=== PATIENT | female | born 1990 | race Two or more races ===

== ENCOUNTER 2023-09-15 14:26 | Outpatient (CLI) | payer OTHER | END 2023-09-15 14:27 | disposition home or self-care (01) | LOC: PRENATAL 14:26 | PROVIDERS: ATTEND Obstetrics & Gynecology Maternal & Fetal Medicine | DX: O36.80X0 Pregnancy with inconclusive fetal viability, not applicable or unspecified (principal); Z36.82 Encounter for antenatal screening for nuchal translucency; Z3A.12 12 weeks gestation of pregnancy ==

== ENCOUNTER 2023-09-23 15:44 | Emergency (ER) | payer OTHER ==
[~2023-09-23] VITALS: Ht 160 cm; Wt 61.2 kg
[2023-09-23] MEDS ORDERED: PRENATAL + DHA1 EAC1 PO (16:13)
[2023-09-23] MEDS ORDERED: 0.9 % SODIUM CHLORIDE 1,000 ML IV STA (16:24)
[2023-09-23 16:47] LABS: HEMATOCRIT 39.6 % (36.0-45.00); HEMOGLOBIN 13.7 g/dL (12.0-15.00); MEAN CELL VOLUME 92.4 fL (80.00-100.00); MEAN CORPUSCULAR HEMOGLOBIN 31.9 pg (27.00-32.0); MEAN CORPUSCULAR HGB CONC 34.5 g/dl (32.0-36.0); PLATELET COUNT 250 K/uL (150-450); RED BLOOD COUNT 4.28 M/uL (4.00-6.00); RED CELL DISTRIBUTION WIDTH 12.9 % (11.5-14.5)
== END 2023-09-23 18:27 | disposition home or self-care (01) ==
LOC: ER 15:44
PROVIDERS: Emergency Medicine
DX: O20.9 Hemorrhage in early pregnancy, unspecified (principal); Z3A.13 13 weeks gestation of pregnancy

== ENCOUNTER 2023-11-11 10:30 | Outpatient (CLI) | payer OTHER ==
[~2023-11-11 10:30] MED LIST: PRENATAL + DHA1 EAC1 PO
== END 2023-11-11 10:31 | disposition home or self-care (01) ==
LOC: PRENATAL 10:30
PROVIDERS: ATTEND Obstetrics & Gynecology Maternal & Fetal Medicine
DX: O35.9XX0 Maternal care for (suspected) fetal abnormality and damage, unspecified, not applicable or unspecified (principal); O35.3XX0 Maternal care for (suspected) damage to fetus from viral disease in mother, not applicable or unspecified; O44.00 Complete placenta previa NOS or without hemorrhage, unspecified trimester; Z3A.20 20 weeks gestation of pregnancy

== ENCOUNTER 2024-02-02 09:53 | Outpatient (CLI) | payer OTHER | END 2024-02-02 09:54 | disposition home or self-care (01) | LOC: PRENATAL 09:53 | PROVIDERS: ATTEND Obstetrics & Gynecology Maternal & Fetal Medicine | DX: O26.849 Uterine size-date discrepancy, unspecified trimester (principal); O36.8199 Decreased fetal movements, unspecified trimester, other fetus; Z3A.32 32 weeks gestation of pregnancy ==

== ENCOUNTER 2024-03-19 07:49 | Inpatient (IN) | payer OTHER ==
[~2024-03-19] VITALS: Ht 167.6 cm; Wt 73.9 kg
[2024-03-19] MEDS ORDERED: RINGERS SOLUTION,LACTATED 1,000 ML IV SCH (08:00)
[2024-03-19] MEDS ORDERED: PEPCID20 MG PO (08:00)
[2024-03-19] MEDS ORDERED: AMPICILLIN SODIUM 2,000 MG VIAL IV NR (08:00)
[2024-03-19 08:43] LABS: PH,URINE 7.5 (5.0-8.0); URINE APPEARANCE Turbid; URINE BILIRRUBIN Small (NEGATIVE); URINE BLOOD Large; URINE COLOR Orange; URINE GLUCOSE Negative (NEGATIVE); URINE LEUKOCYTE Large; URINE NITRATE Negative
[2024-03-19 08:44] LABS: URINE BACTERIA 7578.8 uL (0.0-1933); URINE RBC 1147.7 uL (0.0-20.8); URINE WBC 2717.2 uL (0.0-23.2)
[2024-03-19 08:54] LABS: URINE CAST 0.91 uL (0.0-1.40); URINE EPITHELIAL CELLS > 201.7 uL (0.0-38.8); URINE KETONE 40 (NEGATIVE); URINE PROTEIN 100 (NEGATIVE)
[2024-03-19 09:36] LABS: ALBUMIN 2.9 gm/dL (3.4-5.0); BILIRUBIN TOTAL 1.28 mg/dL (0.3-1.2); CREATININE SERUM 0.62 mg/dL (0.55-1.02); GFR 110.19; GLOBULINA 3.8 G/DL (2.4-3.5); POTASSIUM 3.91 mEq/L (3.5-5.1); TOTAL PROTEIN 6.7 gm/dL (6.4-8.2)
[2024-03-19 09:45] LABS: HEMATOCRIT 36.1 % (36.0-45.00); HEMOGLOBIN 12.5 g/dL (12.0-15.00); MEAN CORPUSCULAR HEMOGLOBIN 32.8 pg (27.00-32.0); MEAN CORPUSCULAR HGB CONC 34.6 g/dl (32.0-36.0); RED CELL DISTRIBUTION WIDTH 13.5 % (11.5-14.5)
[2024-03-19 09:48] LABS: PLATELET COUNT 157 K/uL (150-450)
[2024-03-19 10:33] LABS: INR 0.99; PARTIAL THROMBOPLASTIN TIME 29.8 SECONDS (22.0-34.0)
[2024-03-19 10:40] LABS: PROTHROMBIN TIME 10.4 SECONDS (9.0-11.5)
[2024-03-19] MEDS ORDERED: ERYTHROMYCIN BASE 1 GM TUBE OP ONE (10:59)
[2024-03-19] MEDS ORDERED: OXYTOCIN 20 UNITS/1000ML RL PIGGYBAG IV ONE (10:59)
[2024-03-19] MEDS ORDERED: LIDOCAINE HCL 1% 10ML VIAL ONE (10:59)
[2024-03-19] MEDS ORDERED: CHLORHEXIDINE GLUCONATE 120 ML BOTTLE TOP ONE (10:59)
[2024-03-19] MEDS ORDERED: AMPICILLIN SODIUM 1,000 MG VIAL IV SCH (12:00)
[2024-03-19] MEDS ORDERED: OXYTOCIN 10 UNITS/ML VIAL ONE (12:48)
[2024-03-19] MEDS ORDERED: OXYTOCIN 20 UNITS/1000ML RL PIGGYBAG IV STA (13:23)
[2024-03-19] MEDS ORDERED: LIDOCAINE HCL 1% 10ML VIAL IJ ONE (13:30)
[2024-03-19] MEDS ORDERED: ACETAMINOPHEN 500 MG GEL..CAP PO PRN (13:30)
[2024-03-19] MEDS ORDERED: CHLORHEXIDINE GLUCONATE 120 ML BOTTLE TOP SCH (13:30)
[2024-03-19] MEDS ORDERED: OXYTOCIN 1,000 ML IV SCH (13:30)
[2024-03-19] MEDS ORDERED: BENZOCAINE/MENTHOL 90 ML BOTTLE TOP PRN (13:30)
[2024-03-19] MEDS ORDERED: ERYTHROMYCIN BASE 1 GM TUBE OP SCH (13:30)
[2024-03-20 08:41] LABS: HEMOGLOBIN 10.9 g/dL (12.0-15.00); MEAN CELL VOLUME 96.8 fL (80.00-100.00); MEAN CORPUSCULAR HGB CONC 34.1 g/dl (32.0-36.0); PLATELET COUNT 163 K/uL (150-450); RED CELL DISTRIBUTION WIDTH 13.3 % (11.5-14.5)
[2024-03-20] MEDS ORDERED: PNV,CALCIUM 72/IRON/FOLIC ACID 1 TAB TABLET PO SCH (09:00)
== END 2024-03-21 11:55 | disposition home or self-care (01) | DRG 807 ==
LOC: OB/GYN 07:49 → LDR 07:49 → OB/GYN 12:56
PROVIDERS: ADMIT Obstetrics & Gynecology; ATTEND Obstetrics & Gynecology
PROC: 10E0XZZ Delivery of Products of Conception, External Approach (ICD-10-PCS; principal; 2024-03-19)
PROC: 0UQMXZZ Repair Vulva, External Approach (ICD-10-PCS; 2024-03-19)
PROC: 0UQG7ZZ Repair Vagina, Via Natural or Artificial Opening (ICD-10-PCS; 2024-03-19)
PROC: 4A1HXCZ Monitoring of Products of Conception, Cardiac Rate, External Approach (ICD-10-PCS; 2024-03-19)
DX: O70.0 First degree perineal laceration during delivery (principal); O99.824 Streptococcus B carrier state complicating childbirth; Z37.0 Single live birth; Z3A.38 38 weeks gestation of pregnancy; Z20.822 Contact with and (suspected) exposure to COVID-19